=== PATIENT | female | born 1955 | race Caucasian/White ===

== ENCOUNTER 2017-11-13 18:37 | Emergency (ER) | payer MEDICARE ==
[~2017-11-13] VITALS: Ht 170.2 cm; Wt 64.9 kg
[2017-11-13] MEDS ORDERED: DICL25ER PO (20:55)
[2017-11-13] MEDS ORDERED: PREG150 PO (20:56)
[2017-11-13] MEDS ORDERED: LEVSOD75 PO (20:56)
[2017-11-13] MEDS ORDERED: Omeprazole20 M1 PO (20:56)
[2017-11-13] MEDS ORDERED: Norco 5-325 Ta1 EACH PO (20:57)
== END 2017-11-13 21:36 | disposition home or self-care (01) ==
LOC: ER 18:37
DX: S63.502A Unspecified sprain of left wrist, initial encounter (principal); Z88.5 Allergy status to narcotic agent; Z79.899 Other long term (current) drug therapy; Z87.891 Personal history of nicotine dependence; W19.XXXA Unspecified fall, initial encounter
CPT/HCPCS: 29125; 73110; 99283-25

== ENCOUNTER 2018-04-18 13:10 | Day surgery (SDC) | payer OTHER, MEDICARE ==
[~2018-04-18 13:10] MED LIST: DICL25ER PO; LEVSOD75 PO; Norco 5-325 Ta1 EACH PO; Omeprazole20 M1 PO; PREG150 PO
[2018-04-21] MEDS ORDERED: Calcium Citrat1 EA10 PO (14:50)
== END 2018-04-18 23:01 | disposition home or self-care (01) ==
LOC: US 13:10
DX: J90 Pleural effusion, not elsewhere classified (principal); R06.02 Shortness of breath
CPT/HCPCS: 32555; 71045; 88108; 88305; 88341; 88342

== ENCOUNTER 2018-04-22 07:18 | Day surgery (SDC) | payer OTHER, MEDICARE ==
[~2018-04-22] VITALS: Ht 170.2 cm; Wt 138.0 kg
[~2018-04-22 07:18] MED LIST changes: +Calcium Citrat1 EA10 PO
--- NOTE | 2018-04-22 07:52 | NUR ---
[facility] ADMISSION STARTED. NUMBER FOR GOTTEN TO CALL HIM WHEN PROCEDURE OVER.
--- NOTE | 2018-04-22 09:08 | NUR ---
04/22/18 0908 Ayaan Souza PATIENT DETERMINED TO BE ASA APPROPRIATE FOR PROPOFOL SEDATION PRIOR TO START OF PROCEDURE BY . 3-LEAD EKG REVIEWED WITH PHYSICIAN PRIOR TO START OF PROCEDURE.PATIENT CONFIRMS NPO STATUS AND AGREES WITH SCHEDULED PROCEDURE.History, Chart, Medications and Allergies reviewed before start of procedure.MONITOR INTACT WITH CONTINUOUS PULSE OXIMETRY AND INTERMITTENT BP.O2 VIA N/C INTACT THROUGHOUT SEDATION/PROCEDURE.
--- NOTE | 2018-04-22 10:02 | NUR ---
FREQUENT DRY COUGH NOTED.
--- NOTE | 2018-04-22 10:12 | NUR ---
C/O 12/29 HEADACHE. DENIES VISIAL DISTURBANCE AND NAUSEA. CONTINUES TO COUGH DRY, NONPRODUCTIVE.
--- NOTE | 2018-04-22 10:21 | NUR ---
DR RUFF PAGED TO REPORT PATIENT'S C/O OF 12/29 HEADACHE AND REQUEST FOR ANALGESIC. PATIENT DENIES ALLERGY TO CODIENE. REMOVED FROM ALLERGY LIST.
--- NOTE | 2018-04-22 10:42 | NUR ---
COUGHING CONTINUES, BUT LESS FREQUENT. VSS.
--- NOTE | 2018-04-22 10:54 | NUR ---
PATIENT TO RADIOLOGY FOR CHEST XRAY. REPORT GIVEN TO REBECCA ALEJO RN.
--- NOTE | 2018-04-22 11:00 | NUR ---
PT BACK FROM RADIOLOGY. PT STATES "I FEEL BETTER" - PT NOTED TO HAVE THE OCCASIONAL COUGH AND CLEARING OF HER THROAT. LIGHTS TURNED DOWN PER PT REQUEST. CALL LIGHT IN REACH. CONTINUED MONITORING.
--- NOTE | 2018-04-22 11:48 | NUR ---
SPOKE WITH DR. RUFF TO CONFIRM THAT PTS XRAY HAD BEEN REVIEWED AND PT WAS GOOD FOR DISCHARGE.
--- NOTE | 2018-04-22 12:05 | NUR ---
PT WITH NOTABLE GAG REFLEX. ABLE TO DRINK WATER WITHOUT DIFFICULTY. D/C INSTRUCTIONS REVIEWED WITH PT. IV DCD INTACT. OUT OF DEPARTMENT VIA W/C, DRIVING PT HOME.
== END 2018-04-22 12:05 | disposition home or self-care (01) ==
LOC: ORSCMMR 07:18 → ORD 08:30 → ORSCMMR 08:30
PROVIDERS: Internal Medicine Critical Care Medicine
PROC: 0BB68ZX Excision of Right Lower Lobe Bronchus, Via Natural or Artificial Opening Endoscopic, Diagnostic (ICD-10-PCS; principal; 2018-04-22 08:30)
PROC: 0BB28ZX Excision of Carina, Via Natural or Artificial Opening Endoscopic, Diagnostic (ICD-10-PCS; principal; 2018-04-22 08:30)
DX: R94.2 Abnormal results of pulmonary function studies (principal); C34.31 Malignant neoplasm of lower lobe, right bronchus or lung; Z79.899 Other long term (current) drug therapy; F17.210 Nicotine dependence, cigarettes, uncomplicated
CPT/HCPCS: 71045; 88173; 88305; J3010; J7120

== ENCOUNTER 2018-06-04 15:03 | Emergency (ER) | payer OTHER, MEDICARE ==
[~2018-06-04] VITALS: Ht 170.2 cm; Wt 62.1 kg
[2018-06-04] MEDS ORDERED: SOMA350 MG PO (15:57)
[2018-06-04] MEDS ORDERED: ALBU90OI61 INH (15:57)
[2018-06-04] MEDS ORDERED: MAGOXI400 PO (15:58)
[2018-06-04] MEDS ORDERED: Percocet 5-3251 EACH PO (15:58)
[2018-06-04 16:10] LABS: BASOPHILS ABSOLUTE AUTO 0.02 K/mm3 (0.00-0.23); BASOPHILS PERCENT AUTO 0 % (0-2); EOSINOPHILS PERCENT AUTO 0 % (0-6); Hematocrit 27.7 % (33.0-51.0); Hemoglobin 8.8 g/dL (11.5-16.0); IMMATURE GRAN ABSOLUTE AUTO 0.03 K/mm3 (0.00-0.10); IMMATURE GRAN PERCENT AUTO 1 % (0-1); LYMPHOCYTES ABSOLUTE AUTO 0.57 K/mm3 (0.84-5.20); LYMPHOCYTES PERCENT AUTO 10 % (21-46); MONOCYTES ABSOLUTE AUTO 0.79 K/mm3 (0.16-1.47); MONOCYTES PERCENT AUTO 14 % (4-13); Mean Corpuscular HGB Conc 31.8 g/dL (31.5-36.5); Mean Corpuscular Volume 82 fL (80-100); Mean Platelet Volume 9.5 fL (9.1-12.4); NEUTROPHILS ABSOLUTE AUTO 4.21 K/mm3 (1.96-9.15); NEUTROPHILS PERCENT AUTO 75 % (41-73); Platelet Count 101 K/mm3 (150-400); RDW Coefficient Variation 16.5 % (11.7-14.2); Red Blood Cell Count 3.39 M/mm3 (3.80-5.20); White Blood Cell Count 5.62 K/mm3 (4.00-11.30)
[2018-06-04 16:16] LABS: Alanine Aminotransfer (ALT/SGP 13 U/L (12-78); Albumin, Blood 2.5 g/dL (3.4-5.0); Albumin/Globulin Ratio 0.6 (0.8-1.8); Alk Phos 99 U/L (50-136); Anion Gap 10 mmol/L (6-16); Aspartate Aminotrans (AST/SGOT 17 U/L (12-37); Bilirubin, Total 0.3 mg/dL (0.1-1.0); Blood Urea Nitrogen 18 mg/dL (8-24); Bun/Creatinine Ratio 26.6 (12.0-20.0); CO2, Blood 25 mmol/L (21-32); Calcium, Blood 8.6 mg/dL (8.5-10.1); Chloride, Blood 104 mmol/L (98-108); Creatinine, Blood 0.68 mg/dL (0.40-1.00); Glomerular Filtration Rate >60 (60-); Glucose, Blood 99 mg/dL (70-99); Potassium, Blood 4.1 mmol/L (3.5-5.5); Sodium, Blood 139 mmol/L (136-145); Total Protein, Blood 6.5 g/dL (6.4-8.2)
[2018-06-04 16:22] LABS: Influenza A Negative (NEGATIVE); Influenza B Negative (NEGATIVE)
== END 2018-06-04 19:51 | disposition home or self-care (01) ==
LOC: ER 15:03
PROVIDERS: Physician Assistant
DX: J90 Pleural effusion, not elsewhere classified (principal); Z87.891 Personal history of nicotine dependence; Z85.118 Personal history of other malignant neoplasm of bronchus and lung
CPT/HCPCS: 32555; 36415; 71045; 71046; 80053; 84484; 85025; 87804; 93005; 93010; 94640; 99284-25

== ENCOUNTER 2018-07-01 14:15 | Day surgery (SDC) | payer OTHER, MEDICARE ==
[2018-06-29 09:08] LABS: BASOPHILS ABSOLUTE AUTO 0.05 K/mm3 (0.00-0.23); BASOPHILS PERCENT AUTO 1 % (0-2); EOSINOPHILS ABSOLUTE AUTO 0.01 K/mm3 (0.00-0.68); EOSINOPHILS PERCENT AUTO 0 % (0-6); Hematocrit 26.1 % (33.0-51.0); Hemoglobin 7.8 g/dL (11.5-16.0); IMMATURE GRAN ABSOLUTE AUTO 0.05 K/mm3 (0.00-0.10); IMMATURE GRAN PERCENT AUTO 1 % (0-1); LYMPHOCYTES ABSOLUTE AUTO 0.52 K/mm3 (0.84-5.20); LYMPHOCYTES PERCENT AUTO 8 % (21-46); MONOCYTES PERCENT AUTO 7 % (4-13); Mean Corpuscular HGB 24.7 pg (26.0-34.0); Mean Corpuscular HGB Conc 29.9 g/dL (31.5-36.5); Mean Corpuscular Volume 83 fL (80-100); Mean Platelet Volume 9.4 fL (9.1-12.4); NEUTROPHILS PERCENT AUTO 84 % (41-73); Platelet Count 194 K/mm3 (150-400); RDW Coefficient Variation 17.5 % (11.7-14.2); RDW Standard Deviation 52.2 fL (35.1-46.3); Red Blood Cell Count 3.16 M/mm3 (3.80-5.20); White Blood Cell Count 6.93 K/mm3 (4.00-11.30)
[2018-06-29 09:25] LABS: Alanine Aminotransfer (ALT/SGP 12 U/L (12-78); Albumin, Blood 2.3 g/dL (3.4-5.0); Albumin/Globulin Ratio 0.5 (0.8-1.8); Alk Phos 92 U/L (50-136); Anion Gap 9 mmol/L (6-16); Aspartate Aminotrans (AST/SGOT 11 U/L (12-37); Bilirubin, Total 0.3 mg/dL (0.1-1.0); Blood Urea Nitrogen 17 mg/dL (8-24); Bun/Creatinine Ratio 18.3 (12.0-20.0); CO2, Blood 25 mmol/L (21-32); Calcium, Blood 9.1 mg/dL (8.5-10.1); Chloride, Blood 102 mmol/L (98-108); Creatinine, Blood 0.93 mg/dL (0.40-1.00); Globulin, Blood 4.9 g/dL (2.2-4.0); Glomerular Filtration Rate >60 (60-); Glucose, Blood 102 mg/dL (70-99); Potassium, Blood 4.4 mmol/L (3.5-5.5); Sodium, Blood 136 mmol/L (136-145); Total Protein, Blood 7.2 g/dL (6.4-8.2)
[2018-06-29 16:05] LABS: Percent Saturation 5.4 % (15.0-50.0)
[~2018-07-01 14:15] MED LIST changes: +ALBU90OI61 INH; +MAGOXI400 PO; +Percocet 5-3251 EACH PO; +SOMA350 MG PO
[2018-07-01] MEDS ORDERED: TAGRISSO80 MG PO (15:02)
--- NOTE | 2018-07-01 18:25 | NUR ---
LUNGS ARE VERY DECREASED ON R SIDE.
== END 2018-07-01 18:20 | disposition home or self-care (01) ==
LOC: ATC 14:15
PROVIDERS: Internal Medicine Hematology & Oncology
DX: C34.31 Malignant neoplasm of lower lobe, right bronchus or lung (principal); C79.51 Secondary malignant neoplasm of bone; C77.1 Secondary and unspecified malignant neoplasm of intrathoracic lymph nodes; D64.81 Anemia due to antineoplastic chemotherapy; K21.9 Gastro-esophageal reflux disease without esophagitis; F32.9 Major depressive disorder, single episode, unspecified; Z88.5 Allergy status to narcotic agent; Z87.891 Personal history of nicotine dependence; Z79.899 Other long term (current) drug therapy
CPT/HCPCS: 36415; 80053; 82607; 82728; 82746; 83540; 83550; 85025; 86850; 86900; 86901; 86923; J7050; P9016

== ENCOUNTER 2018-07-29 09:54 | Inpatient (IN) | payer OTHER, MEDICARE ==
[~2018-07-29 09:54] MED LIST changes: +TAGRISSO80 MG PO
--- NOTE | 2018-07-29 10:34 | NUR ---
PT ARRIVAL TO UNIT. ALERT AND ORIENTED. GREEN BLOOD BANK WRIST BAND ON. THIS RN VERIFIED NUMBER WITH BLOOD BANK. WRITTEN ORDERS PLACED INTO COMPUTER. WAITING FOR BLOOD TO BE SENT TO FLOOR AT THIS TIME. PT IN RECLINER CHAIR. 20G IV STARTED. OFFERED PT WATER AND TEA AND PLACED WARM BLANKET ON PT. PT ORIENTED TO ROOM AND CALL LIGHT.
--- NOTE | 2018-07-29 17:10 | NUR ---
PT TOLERATED FIRST BLOOD TRANSFUSION WELL. SECOND UNIT STARTED AT THIS TIME. VSS.
--- NOTE | 2018-07-29 18:16 | NUR ---
PT REPORTS SHE GETS VERY COLD FREQUENTLY AND STARTS TO SHAKE AND SHIVER. PT IS CURRENTLY SHIVERING AND HAS MANY WARM BLANKETS ON. PT DOES HAVE A LOW GRADE FEVER OF 100.3. WILL CONT TO MONITOR CLOSELY. OTHER VSS. PT WAS SHIVERING BEFORE THE SECOND UNIT OF BLOOD STARTED TRANFUSING. SHE REPORTS THE SHIVERING TO BE BASELINE. NO OTHER COMPLAINTS OR S/S.
--- NOTE | 2018-07-29 19:22 | NUR ---
PT DC'D VS NOTED, IV DC'D WNL. PT ASSISTED TO WHEELCHAIR, FAMILY AT SIDE, BELONGINGS WITH PT. PT DENIES FURTHER NEEDS. NADN, PT DC'D VIA FAMILY, HOME IN FAMILY VEHICLE.
== END 2018-07-29 19:25 | disposition home or self-care (01) | DRG 809 ==
LOC: SURS 09:54
PROVIDERS: ADMIT Internal Medicine Hematology & Oncology
PROC: 30233N1 Transfusion of Nonautologous Red Blood Cells into Peripheral Vein, Percutaneous Approach (ICD-10-PCS; principal; 2018-07-29)
DX: D61.810 Antineoplastic chemotherapy induced pancytopenia (principal); C34.31 Malignant neoplasm of lower lobe, right bronchus or lung; C79.51 Secondary malignant neoplasm of bone; Z87.891 Personal history of nicotine dependence; K21.9 Gastro-esophageal reflux disease without esophagitis
CPT/HCPCS: 86850; 86870; 86900; 86901; 86902; 86905; 86922; J7030; P9016

== ENCOUNTER 2021-03-24 06:08 | Day surgery (SDC) | payer OTHER, MEDICARE ==
[~2021-03-24] VITALS: Ht 170.2 cm; Wt 63.2 kg
[~2021-03-24 06:08] MED LIST changes: +FOLI1 PO; +HYDPAM25 PO; +XARELTO20 MG PO
[2021-03-24] MEDS ORDERED: GUAI200 PO (06:35)
--- NOTE | 2021-03-24 07:03 | NUR ---
Ambulatory in Day Surgery. 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 History, Chart, Medications and Allergies reviewed before start of procedure. Patient confirms NPO status and agrees with scheduled surgery. Pre-Op teaching done. Pt verbalizes understanding. Patient States Post-Procedure ride home has been arranged.
--- NOTE | 2021-03-24 09:37 | NUR ---
Discharge instructions reviewed with patient. Patient verbalizes understanding. Copy given to patient to take home. Patient States Post-Procedure ride home has been arranged. Discharged via wheelchair to private car for ride home.
--- NOTE | 2021-03-25 12:31 | NUR ---
03/25/21 1231 Erin Butterfield VERIFICATIONS: EDIT CHART.
== END 2021-03-24 23:21 | disposition home or self-care (01) ==
LOC: ORSCMMR 06:08 → ORD 07:30 → ORSCMMR 23:21
PROVIDERS: Surgery
PROC: 05HM33Z Insertion of Infusion Device into Right Internal Jugular Vein, Percutaneous Approach (ICD-10-PCS; principal; 2021-03-24 07:30)
PROC: B543ZZA Ultrasonography of Right Jugular Veins, Guidance (ICD-10-PCS; principal; 2021-03-24 07:30)
DX: C34.31 Malignant neoplasm of lower lobe, right bronchus or lung (principal); J45.909 Unspecified asthma, uncomplicated; F17.210 Nicotine dependence, cigarettes, uncomplicated; E03.9 Hypothyroidism, unspecified; M79.7 Fibromyalgia; Z79.899 Other long term (current) drug therapy; Z79.01 Long term (current) use of anticoagulants
CPT/HCPCS: 77001; A9270; C1788; J0690; J1100; J1642; J2250; J2405; J2704; J3010; J7120

== ENCOUNTER 2021-12-07 15:07 | Inpatient (IN) | payer OTHER, MEDICARE ==
[~2021-12-07] VITALS: Ht 172.7 cm; Wt 71.1 kg
[~2021-12-07 15:07] MED LIST changes: +GUAI200 PO
[2021-12-07 15:39] LABS: Hematocrit 25.9 % (33.0-51.0); Hemoglobin 8.5 g/dL (11.5-16.0); Mean Corpuscular HGB 31.8 pg (26.0-34.0); Mean Corpuscular HGB Conc 32.8 g/dL (31.5-36.5); Mean Corpuscular Volume 97 fL (80-100); Mean Platelet Volume 11.1 fL (9.1-12.4); RDW Coefficient Variation 15.8 % (11.7-14.2); RDW Standard Deviation 56.3 fL (35.1-46.3); Red Blood Cell Count 2.67 M/mm3 (3.80-5.20); White Blood Cell Count 19.35 K/mm3 (4.00-11.30)
[2021-12-07 15:49] LABS: Platelet Count 41 K/mm3 (150-400)
[2021-12-07 16:09] LABS: Albumin, Blood 2.6 g/dL (3.4-5.0); Bilirubin, Total 0.8 mg/dL (0.1-1.0); Bun/Creatinine Ratio 33.2 (12.0-20.0); Calcium, Blood 8.8 mg/dL (8.5-10.1); Creatinine, Blood 0.9 mg/dL (0.40-1.00); Globulin, Blood 2.7 g/dL (2.2-4.0); Total Protein, Blood 5.3 g/dL (6.4-8.2)
[2021-12-07 16:18] LABS: BAND PERCENT MAN 2 % (0-8); BASOPHILS PERCENT MAN 0 % (0-2); EOSINOPHILS PERCENT MAN 0 % (0-6); LYMPHOCYTES ABSOLUTE MAN 0.19 K/mm3 (0.84-5.20); LYMPHOCYTES PERCENT MAN 1 % (21-46); MONOCYTES ABSOLUTE MAN 0.19 K/mm3 (0.16-1.47); MONOCYTES PERCENT MAN 1 % (4-13); NEUTROPHILS ABSOLUTE MAN 18.96 K/mm3 (1.96-9.15); SEG NEUTROPHILS PERCENT MAN 96 % (41-73); TOTAL CELLS COUNTED 100
[2021-12-07 22:02] LABS: SARS-Cov-2 (COVID-19) PCR, MMC NEGATIVE (NEGATIVE)
--- NOTE | 2021-12-08 03:37 | NUR ---
SHIFT SUMMARY: PT IS ALERT AND ORIENTED. PT IS CALM AND COOPERATIVE WITH CARE. PT CALLS APPROPRIATELY. PT IS A STANDBY ASSIST. MEDS WHOLE WITHOUT COMPLICATION. PT SLEPT MUCH OF THE NIGHT WHEN NOT DISTURBED. LUNGS HAVE CRACKLES THROUGHOUT, DIM IN THE BASES, SATS > 90% ON 2 L, ROOM AIR AT BASELINE. BED IN LOW POSITION, CALL LIGHT WITHIN REACH, WILL CONTINUE TO MONITOR.
[2021-12-08 04:59] LABS: Hematocrit 26.7 % (33.0-51.0); Hemoglobin 8.3 g/dL (11.5-16.0); LYMPHOCYTES ABSOLUTE AUTO 0.37 K/mm3 (0.84-5.20); LYMPHOCYTES PERCENT AUTO 4 % (21-46); MONOCYTES ABSOLUTE AUTO 0.32 K/mm3 (0.16-1.47); MONOCYTES PERCENT AUTO 3 % (4-13); Mean Corpuscular HGB Conc 31.1 g/dL (31.5-36.5); Mean Corpuscular Volume 100 fL (80-100); Mean Platelet Volume 12.1 fL (9.1-12.4); RDW Coefficient Variation 15.9 % (11.7-14.2); Red Blood Cell Count 2.68 M/mm3 (3.80-5.20); White Blood Cell Count 9.89 K/mm3 (4.00-11.30)
[2021-12-08 05:10] LABS: BASOPHILS ABSOLUTE AUTO 0.02 K/mm3 (0.00-0.23); BASOPHILS PERCENT AUTO 0 % (0-2); EOSINOPHILS ABSOLUTE AUTO 0.19 K/mm3 (0.00-0.68); EOSINOPHILS PERCENT AUTO 2 % (0-6); IMMATURE GRAN PERCENT AUTO 1 % (0-1); NEUTROPHILS ABSOLUTE AUTO 8.89 K/mm3 (1.96-9.15); NEUTROPHILS PERCENT AUTO 90 % (41-73); Platelet Count 42 K/mm3 (150-400)
[2021-12-08 05:22] LABS: Albumin, Blood 2.4 g/dL (3.4-5.0); Albumin/Globulin Ratio 0.8 (0.8-1.8); Bilirubin, Total 0.6 mg/dL (0.1-1.0); Bun/Creatinine Ratio 33.1 (12.0-20.0); Calcium, Blood 7.9 mg/dL (8.5-10.1); Creatinine, Blood 0.88 mg/dL (0.40-1.00); Magnesium, Blood 2.2 mg/dL (1.6-2.4); Potassium, Blood 3.6 mmol/L (3.5-5.5); Total Protein, Blood 5.4 g/dL (6.4-8.2)
--- NOTE | 2021-12-08 17:54 | NUR ---
PATIENT IS ALERT AND ORIENTED AND COOPERATIVE WITH CARE. PATIENT STATES SHE FEELS MUCH BETTEWR THAN SHE DID YESTERDAY. FAMILY HAS BEEN AT THE BEDSIDE ALL THROUGHOUGHT THIS SHIFT. MEDIPORT IS HEPARIN FLUSHED AT THIS TIME. CHEST PHYSIOTHERAPY TWICE THIS SHIFT. MEDICATED WITH FENTANYL BEFORE CPT SO THE PATIENT CAN COUGH WITHOUT PAIN. PATIENT HAS BEEN INDEPENDENT TO THE BATHROOM. SHE SHOWERED HERSELF TODAY. ON 1L O2 VIA NC. STARTED ON AMLODIPINE AND SOLU-MEDROL TODAY. WILL CONTINUE TO MONITOR
[2021-12-09 05:44] LABS: BASOPHILS ABSOLUTE AUTO 0.06 K/mm3 (0.00-0.23); BASOPHILS PERCENT AUTO 2 % (0-2); Hematocrit 24.1 % (33.0-51.0); Hemoglobin 7.9 g/dL (11.5-16.0); LYMPHOCYTES ABSOLUTE AUTO 0.09 K/mm3 (0.84-5.20); LYMPHOCYTES PERCENT AUTO 2 % (21-46); MONOCYTES ABSOLUTE AUTO 0.26 K/mm3 (0.16-1.47); MONOCYTES PERCENT AUTO 6 % (4-13); Mean Corpuscular HGB 31.6 pg (26.0-34.0); Mean Corpuscular HGB Conc 32.8 g/dL (31.5-36.5); Mean Corpuscular Volume 96 fL (80-100); Mean Platelet Volume 12.4 fL (9.1-12.4); RDW Coefficient Variation 15.1 % (11.7-14.2); RDW Standard Deviation 54.1 fL (35.1-46.3); White Blood Cell Count 4.13 K/mm3 (4.00-11.30)
[2021-12-09 05:48] LABS: EOSINOPHILS PERCENT AUTO 0 % (0-6); IMMATURE GRAN ABSOLUTE AUTO 0.05 K/mm3 (0.00-0.10); IMMATURE GRAN PERCENT AUTO 1 % (0-1); NEUTROPHILS ABSOLUTE AUTO 3.67 K/mm3 (1.96-9.15); NEUTROPHILS PERCENT AUTO 89 % (41-73)
[2021-12-09 05:49] LABS: Platelet Count 34 K/mm3 (150-400)
--- NOTE | 2021-12-09 06:12 | NUR ---
Dr Gómez called and updated on platelets and hgb. This RN requests to give amlodipine early d/t patient's BP maintaining HTN. Dr Gómez gives order to give earlier at this time.
[2021-12-09 06:14] LABS: Albumin, Blood 2.6 g/dL (3.4-5.0); Albumin/Globulin Ratio 0.8 (0.8-1.8); Bilirubin, Total 0.6 mg/dL (0.1-1.0); Calcium, Blood 9.1 mg/dL (8.5-10.1); Globulin, Blood 3.2 g/dL (2.2-4.0); Potassium, Blood 4.1 mmol/L (3.5-5.5); Total Protein, Blood 5.8 g/dL (6.4-8.2)
--- NOTE | 2021-12-09 07:41 | NUR ---
SHIFT SUMMARY PT AOX4 T/O SHIFT. CONCERN FOR FLUID OVERLOAD WHEN PT HAS SUDDEN COUGHING FIT THAT AWAKENS HER FROM SLEEP AND BECOMES SEVERELY DYSPNEIC. SATS MAINTAINED 98-100% ON 1 L VIA NC. THIS RN CALLS DR HALE AFTER SIGNIFICANT PITTING EDEMA IS NOTICED AFTER REMOVING SCDS. CONCERN EXPRESSED FOR OVERLOAD. DOSE OF LASIX GIVEN IV. PT HAD INCREASED URINE OUTPUT COMPARED TO PRIOR DAY. THIS RN AVOIDS USE OF HEPARIN PUSH THROUGH IV AND CONTINUES FLUIDS AT SLOWER RATE TO KEEP MEDIPORT PATENT AND ACCESSED. NO FURTHER EPISODES OF DISTRESS NOTED BY THIS RN. CONCERN FOR HTN RELAYED TO DR HALE AND ORDER GIVEN TO ADMIN AMLODIPINE EARLIER THAN SCHEDULED PER THIS RN REQUEST.
--- NOTE | 2021-12-09 16:35 | NUR ---
SHIFT SUMMARY- NO ACUTE CHANGES. PT REPORTS COUGH WITH LITTLE PRODUCTION OF PHELGM. NO C/O OF PAIN BUT PREFERS PAIN MANAGEMENT PRIOR TO PROCEDURE SEE EMAR. FAMILY AT BEDSIDE. PT ON FLUID RESTRICTIONS OF 1500ML PER ORDER. OFFERED ICE CHIPS, NEEDED. HEP LOCKED MEDIPORT AFTER D/C FLUIDS. PT RESTING IN BED NOW WITH SIDE AND CALL LIGHT IN REACH.
--- NOTE | 2021-12-10 04:30 | NUR ---
SHIFT SUMMARY NO ACUTE CHANGES T/O SHIFT. PT ON FLUID RESTRICTIONS OF 1500 ML. ACCESSED MEDIPORT TO ADMINISTER IV MEDICATIONS PER EMAR THEN HEPARIN LOCKED WHEN DONE. PT REPORTS SOME IMPROVEMENT ON PRODUCTIVE COUGH ABILITY, ALTHOUGH CRACKLES STILL AUDIBLE IN ALL 4 LOBES. NO C/O OF PAIN THIS SHIFT. PT UP INDEPENDENTLY TO THE BATHROOM. PT AOX4, PLEASANT AND COOPERATIVE WITH CARE.
[2021-12-10 09:35] LABS: Hematocrit 24.7 % (33.0-51.0); Hemoglobin 8.3 g/dL (11.5-16.0); Mean Corpuscular HGB 31.9 pg (26.0-34.0); Mean Corpuscular HGB Conc 33.6 g/dL (31.5-36.5); Mean Corpuscular Volume 95 fL (80-100); Mean Platelet Volume 11.4 fL (9.1-12.4); RDW Coefficient Variation 14.9 % (11.7-14.2); RDW Standard Deviation 52.3 fL (35.1-46.3); White Blood Cell Count 3.44 K/mm3 (4.00-11.30)
[2021-12-10 09:40] LABS: Platelet Count 46 K/mm3 (150-400)
--- NOTE | 2021-12-10 09:43 | NUR ---
CALLED DR REPORTED CRITICAL LAB VALUE @[id number], SEE EMAR
[2021-12-10 10:00] LABS: BAND PERCENT MAN 6 % (0-8); BASOPHILS PERCENT MAN 0 % (0-2); EOSINOPHILS PERCENT MAN 3 % (0-6); LYMPHOCYTES ABSOLUTE MAN 0.13 K/mm3 (0.84-5.20); LYMPHOCYTES PERCENT MAN 4 % (21-46); METAMYELOCYTE ABSOLUTE MAN 0.06 K/mm3 (0.00-0.00); METAMYELOCYTE PERCENT MAN 2 % (0-0); MONOCYTES PERCENT MAN 3 % (4-13); MYELOCYTE PERCENT MAN 3 % (0-0); NEUTROPHILS ABSOLUTE MAN 2.88 K/mm3 (1.96-9.15); SEG NEUTROPHILS PERCENT MAN 78 % (41-73); TOTAL CELLS COUNTED 100
[2021-12-10 10:02] LABS: PROMYELOCYTE ABSOLUTE MAN 0.03 K/mm3 (0.00-0.00); PROMYELOCYTE PERCENT MAN 1 % (0-0)
[2021-12-10 10:47] LABS: Bun/Creatinine Ratio 42.3 (12.0-20.0); Calcium, Blood 9.7 mg/dL (8.5-10.1); Creatinine, Blood 1.04 mg/dL (0.40-1.00); Potassium, Blood 3.5 mmol/L (3.5-5.5)
--- NOTE | 2021-12-10 18:23 | NUR ---
SHIFT SUMMARY- PT INDEPENDANT IN THE ROOM. VSS. MEDIPORT DRESSING CHANGE. PT APPETITE GOOD. FAMILY AT BEDSIDE. COUGHING MOIST, SCANT PRODUCTION. EDEMA SLIGHT, +1. NO ACUTE CHANGES. CALL LIGHT IN REACH.
--- NOTE | 2021-12-11 04:19 | NUR ---
SHIFT SUMMARY NO C/O OF PAIN THIS SHIFT. PT STATES HER PERCUSSION TREATMENTS ARE WORKING AND SHE IS ABLE TO COUGH UP SECRETIONS. FLUID STILL HEARD IN HER LUNGS IN ALL 4 LOBES BUT IS IMPROVING. SOME EDEMA PRESENT IN HER LOWER LEGS, 1-2 PITTING EDEMA. PT INDEPENDENT IN THE ROOM, AOX4, PLEASANT AND COOPERTIVE WITH CARE.
[2021-12-11 04:56] LABS: Hematocrit 22.7 % (33.0-51.0); Hemoglobin 7.6 g/dL (11.5-16.0); Mean Corpuscular HGB 32.2 pg (26.0-34.0); Mean Corpuscular HGB Conc 33.5 g/dL (31.5-36.5); Mean Corpuscular Volume 96 fL (80-100); Mean Platelet Volume 11.6 fL (9.1-12.4); NRBC ABSOLUTE 0.04 K/mm3 (0.00-0.02); NRBC Auto 1.1 /100 WBC (0.0-0.2); RDW Coefficient Variation 15.2 % (11.7-14.2); RDW Standard Deviation 52.1 fL (35.1-46.3); Red Blood Cell Count 2.36 M/mm3 (3.80-5.20); White Blood Cell Count 3.59 K/mm3 (4.00-11.30)
[2021-12-11 05:02] LABS: Platelet Count 42 K/mm3 (150-400)
[2021-12-11 05:12] LABS: Albumin, Blood 2.8 g/dL (3.4-5.0); Albumin/Globulin Ratio 1.1 (0.8-1.8); Bilirubin, Total 0.5 mg/dL (0.1-1.0); Bun/Creatinine Ratio 44.4 (12.0-20.0); Calcium, Blood 8.8 mg/dL (8.5-10.1); Creatinine, Blood 1.08 mg/dL (0.40-1.00); Globulin, Blood 2.6 g/dL (2.2-4.0); Potassium, Blood 3.2 mmol/L (3.5-5.5); Total Protein, Blood 5.4 g/dL (6.4-8.2)
[2021-12-11 06:18] LABS: BAND PERCENT MAN 18 % (0-8); BASOPHILS PERCENT MAN 0 % (0-2); EOSINOPHILS PERCENT MAN 0 % (0-6); LYMPHOCYTES % ATYPICAL MANUAL 2 % (0-0); LYMPHOCYTES ABSOLUTE MAN 0.35 K/mm3 (0.84-5.20); LYMPHOCYTES PERCENT MAN 8 % (21-46); METAMYELOCYTE ABSOLUTE MAN 0.03 K/mm3 (0.00-0.00); METAMYELOCYTE PERCENT MAN 1 % (0-0); MONOCYTES ABSOLUTE MAN 0.21 K/mm3 (0.16-1.47); MONOCYTES PERCENT MAN 6 % (4-13); MYELOCYTE ABSOLUTE MAN 0.07 K/mm3 (0.00-0.00); MYELOCYTE PERCENT MAN 2 % (0-0); NEUTROPHILS ABSOLUTE MAN 2.87 K/mm3 (1.96-9.15); PROMYELOCYTE ABSOLUTE MAN 0.03 K/mm3 (0.00-0.00); PROMYELOCYTE PERCENT MAN 1 % (0-0); SEG NEUTROPHILS PERCENT MAN 62 % (41-73); TOTAL CELLS COUNTED 100
--- NOTE | 2021-12-11 07:34 | NUR ---
ASSUMED CARE: PT AWAKE, AMBULATING IN ROOM. TALKING TO STAFF DURING BEDSIDE REPORT. STATES RIB PAIN FROM CPT. INSTRUCTED PT TO DISCUSS WITH RT AND WILL DISCUSS WITH PHYSICIAN WHEN THEY COME AROUND. DENIES OTHER NEEDS OR CONCERNS AT THIS TIME.
[2021-12-11 09:49] LABS: BASOPHILS ABSOLUTE AUTO 0.04 K/mm3 (0.00-0.23); BASOPHILS PERCENT AUTO 1 % (0-2); Hematocrit 25.7 % (33.0-51.0); Hemoglobin 8.4 g/dL (11.5-16.0); LYMPHOCYTES ABSOLUTE AUTO 0.61 K/mm3 (0.84-5.20); LYMPHOCYTES PERCENT AUTO 13 % (21-46); MONOCYTES ABSOLUTE AUTO 0.74 K/mm3 (0.16-1.47); MONOCYTES PERCENT AUTO 16 % (4-13); Mean Corpuscular HGB 32.2 pg (26.0-34.0); Mean Corpuscular HGB Conc 32.7 g/dL (31.5-36.5); Mean Corpuscular Volume 99 fL (80-100); Mean Platelet Volume 9.8 fL (9.1-12.4); NRBC ABSOLUTE 0.03 K/mm3 (0.00-0.02); NRBC Auto 0.6 /100 WBC (0.0-0.2); Platelet Count 55 K/mm3 (150-400); RDW Coefficient Variation 15.3 % (11.7-14.2); RDW Standard Deviation 53.7 fL (35.1-46.3); Red Blood Cell Count 2.61 M/mm3 (3.80-5.20); White Blood Cell Count 4.65 K/mm3 (4.00-11.30)
[2021-12-11 09:59] LABS: EOSINOPHILS ABSOLUTE AUTO 0.01 K/mm3 (0.00-0.68); EOSINOPHILS PERCENT AUTO 0 % (0-6); IMMATURE GRAN ABSOLUTE AUTO 0.24 K/mm3 (0.00-0.10); IMMATURE GRAN PERCENT AUTO 5 % (0-1); NEUTROPHILS ABSOLUTE AUTO 3.01 K/mm3 (1.96-9.15); NEUTROPHILS PERCENT AUTO 65 % (41-73)
[2021-12-11 10:06] LABS: Bun/Creatinine Ratio 42.2 (12.0-20.0); Calcium, Blood 9.3 mg/dL (8.5-10.1); Creatinine, Blood 1.09 mg/dL (0.40-1.00)
--- NOTE | 2021-12-11 14:15 | NUR ---
Pt is planning to discharge today, she continues working with Dr. Ashley, Oncologist and plans to continue with this. at bedside, is supportive of . Plan to return home, will request HH if needed. Pt wishes to remain a full code at this time.
--- NOTE | 2021-12-11 18:35 | NUR ---
SHIFT SUMMARY: MEDICATED FOR PAIN X1 WITH TYLENOL AND X1 WITH TORADOL. C/O PAIN IN RIBS WELL CRAMPING IN LEGS. PT HAS TREATED THIS WITH HIGH POTASSIUM FRUIT AND HOME MED THAT WAS APPROVED BY DR MATTHEWS. FAMILY AT BEDSIDE. DENIES FURTHER NEEDS OR CONCERNS AT THIS TIME.
--- NOTE | 2021-12-12 04:28 | NUR ---
SHIFT SUMMARY PT C/O OF PAIN IN RIBS AND CRAMPING LEGS, MEDICATED PER EMAR. SOB ON EXERTION, SOMETIMES INCLUDING TALKING. INDEPENDANT IN THE ROOM, LESS ACTIVE TODAY AND TONIGHT D/T LEG CRAMPS. HIGH POTASSIUM FRUIT AND HOME MED AT BEDSIDE. LUNG SOUNDS ARE CLEARING UP COMPARED TO YESTERDAY. NO ACUTE CHANGES, VSS, PLEASANT AND COOPERATIVE WITH CARE.
[2021-12-12 06:02] LABS: Hemoglobin 7.3 g/dL (11.5-16.0); Mean Corpuscular HGB 31.3 pg (26.0-34.0); Mean Corpuscular HGB Conc 31.7 g/dL (31.5-36.5); Mean Corpuscular Volume 99 fL (80-100); NRBC ABSOLUTE 0.04 K/mm3 (0.00-0.02); NRBC Auto 1.1 /100 WBC (0.0-0.2); RDW Standard Deviation 53.5 fL (35.1-46.3); Red Blood Cell Count 2.33 M/mm3 (3.80-5.20)
[2021-12-12 06:10] LABS: Bun/Creatinine Ratio 39.3 (12.0-20.0); Calcium, Blood 8.2 mg/dL (8.5-10.1); Creatinine, Blood 0.97 mg/dL (0.40-1.00); Potassium, Blood 4.1 mmol/L (3.5-5.5)
[2021-12-12 06:17] LABS: Platelet Count 44 K/mm3 (150-400)
[2021-12-12 07:04] LABS: BAND PERCENT MAN 9 % (0-8); BASOPHILS PERCENT MAN 0 % (0-2); EOSINOPHILS ABSOLUTE MAN 0.14 K/mm3 (0.00-0.68); EOSINOPHILS PERCENT MAN 4 % (0-6); LYMPHOCYTES ABSOLUTE MAN 0.49 K/mm3 (0.84-5.20); LYMPHOCYTES PERCENT MAN 14 % (21-46); METAMYELOCYTE ABSOLUTE MAN 0.03 K/mm3 (0.00-0.00); METAMYELOCYTE PERCENT MAN 1 % (0-0); MONOCYTES ABSOLUTE MAN 0.24 K/mm3 (0.16-1.47); MONOCYTES PERCENT MAN 7 % (4-13); MYELOCYTE PERCENT MAN 3 % (0-0); NEUTROPHILS ABSOLUTE MAN 2.48 K/mm3 (1.96-9.15); SEG NEUTROPHILS PERCENT MAN 62 % (41-73); TOTAL CELLS COUNTED 100
[2021-12-12] MEDS ORDERED: ALBU2.5V5 INH (14:04)
[2021-12-12] MEDS ORDERED: ACET325 PO (14:04)
[2021-12-12] MEDS ORDERED: AMLO5 PO (14:06)
[2021-12-12] MEDS ORDERED: FOLI1 PO (14:06)
[2021-12-12] MEDS ORDERED: OMEP20ER PO (14:07)
[2021-12-12] MEDS ORDERED: FERRO-TIME325 M1 PO (14:08)
[2021-12-12] MEDS ORDERED: FURO40 PO (14:10)
--- NOTE | 2021-12-12 16:28 | NUR ---
DISCHARGE SUMMARY PATIENT IS BEING DISCHARGED TO HOME. PATIENT HAS HAD NO ACUTE EVENTS THIS SHIFT. VITAL SIGNS REVIEWED. MEDIPORT DEACCESSED.
== END 2021-12-12 17:13 | disposition home health service (06) | DRG 871 ==
LOC: ER 15:07 → MEDS 19:41
PROVIDERS: Internal Medicine; Nurse Practitioner Acute Care; Student in an Organized Health Care Education/Training Program; ADMIT Internal Medicine
DX: A41.9 Sepsis, unspecified organism (principal); J18.9 Pneumonia, unspecified organism; J96.01 Acute respiratory failure with hypoxia; C34.90 Malignant neoplasm of unspecified part of unspecified bronchus or lung; J91.0 Malignant pleural effusion; C78.7 Secondary malignant neoplasm of liver and intrahepatic bile duct; C79.51 Secondary malignant neoplasm of bone; Z20.822 Contact with and (suspected) exposure to COVID-19; E03.9 Hypothyroidism, unspecified; D69.59 Other secondary thrombocytopenia; T45.1X5A Adverse effect of antineoplastic and immunosuppressive drugs, initial encounter; D64.81 Anemia due to antineoplastic chemotherapy; E87.70 Fluid overload, unspecified; T17.990A Other foreign object in respiratory tract, part unspecified in causing asphyxiation, initial encounter; N18.2 Chronic kidney disease, stage 2 (mild); R65.20 Severe sepsis without septic shock; D50.9 Iron deficiency anemia, unspecified; D63.0 Anemia in neoplastic disease; Z96.642 Presence of left artificial hip joint; Z86.711 Personal history of pulmonary embolism; Z98.41 Cataract extraction status, right eye; Z98.42 Cataract extraction status, left eye; Z98.890 Other specified postprocedural states; Z87.891 Personal history of nicotine dependence; Z88.5 Allergy status to narcotic agent; Z79.899 Other long term (current) drug therapy
CPT/HCPCS: 36415; 71045; 71260; 80048; 80053; 82728; 83540; 83550; 83605; 83735; 83880; 84145; 85025; 86850; 86900; 86901; 87040; 93005; 93010; 93306; 94640; 94664; 94667; 94668; 94760; 94762; 96365-59; 96375-59; 97110; 97161; 97166; 97530; 97535; 99285-25; A9270; J0456; J0696; J1642; J1885; J1940; J2405; J2765; J2920; J3010; J7030; J7050; J7512; Q9967; U0004